=== PATIENT | female | born 1965 | race Caucasian/White ===

== ENCOUNTER → 2018-11-13 | Day surgery (SDC) | payer OTHER ==
[~2018-11-13] MED LIST: ASPIRIN EC 325 MG TAB PO ONE; BACITRACIN IRRIGATION/NS 50,000 UNITS/1,000 ML BTL IRR ONE; DIAZEPAM 5 MG TAB ONE; DIAZEPAM 5 MG TAB PO ONE; FAMOTIDINE 20 MG TAB ONE; IOPAMIDOL (ISOVUE-370) 150 ML BTL IV ONE; LIDOCAINE 1% 300 MG/30 ML SDV ONE; MIDAZOLAM 2 MG/2 ML VIAL ONE; NS 1,000 ML IV ONE; ceFAZolin 2 GM/DEXTROSE 100 ML IV ONE; diphenhydrAMINE 25 MG CAP PO ONE; fentaNYL 100 MCG/2 ML INJ ONE
[2018-11-13 11:40] LABS: PLATELET COUNT 354 10^3/uL (150-400)
[2018-11-13 11:55] LABS: INR 0.97 (0.83-1.16); PROTIME(PATIENT) 12.5 SEC (12.0-15.0)
--- NOTE | 2018-11-13 12:38 | PDHPUP ---
History & Physical Update H&P update statement: This history and physical update is based on an assessment of the patient which was completed after admission or registration (within 24 hours), but prior to the surgery/procedure. H&P update: H&P reviewed & patient examined, no change in patient's condition since H&P completed
--- NOTE | 2018-11-13 12:39 | PDPROPOC ---
Sedation Plan of Care Sedation Plan of Care: vital signs stable, mental status noted, patient educated of risks, benefits, alternatives, patient can tolerate sedation ASA Classification: ASA 2 Planned drugs: fentanyl, midazolam Mallampati Score: Class 2 Mallampati Reference Image: Patient passed 3-3-2 rule?: Yes
--- NOTE | 2018-11-13 14:14 | CPIP ---
[f rep st] INVASIVE CARDIAC PROCEDURE DATE OF PROCEDURE: 11/13/2018 PROCEDURES: 1. Coronary angiography. 2. Left ventriculography. 3. Bypass graft angiography. INDICATION: 1. Known coronary artery disease status post previous bypass grafting surgery. 2. Status post previous percutaneous coronary intervention. 3. Chest pain concerning for angina. ACCESS: Patient was prepped and draped in sterile fashion. 1% lidocaine was used to anesthetize the right inguinal region. A 6-Norwegian introducer sheath was placed selectively into the right common fe moral artery via modified Seldinger technique. CORONARY ANGIOGRAPHY: A 6-Norwegian JL4 catheter was advanced to the left main coronary artery and imag es obtained. The left main coronary artery bifurcated into LAD and circumflex coronary arteries. Th e left main coronary artery appeared free of any significant disease. The left anterior descending c oronary artery was 100% occluded in the mid vessel, just after the takeoff of the first diagonal bran ch. The first diagonal branch had a proximal 75% to 80% stenosis present. The distal vessel was kyle ng filled by a READ graft. The circumflex coronary artery was a large vessel and was dominant. The circumflex coronary artery had mild luminal irregularities throughout. The posterior descending roel nary artery was diffusely diseased. It is a relatively small vessel, approximately 1-1.[address] A 6-Norwegian no-torque right catheter was advanced to the right coronary artery and images obtain ed. The right coronary artery is nondominant. The right coronary artery appeared free of any signif icant disease. BYPASS GRAFT ANGIOGRAPHY: A 6-Norwegian JR4 was used to engage the saphenous vein graft to diagonal art eddie. The saphenous vein graft to diagonal artery was previously stented in the proximal segment. Th e previously placed stent was widely patent with a 30% to 40%in-stent restenosis. The stenotic segme nt was still larger than the diagonal vessel, which it supplied. The 6-Norwegian JR4 was used to engage the left subclavian artery. The 6-Norwegian JR4 was then exchanged for a 6-Norwegian MANUEL catheter. The 6-F rench MANUEL catheter was used to engage the READ to LAD graft. The READ to LAD graft was widely patent with no evidence of significant stenosis. LEFT VENTRICULOGRAPHY: A 6-Norwegian pigtail catheter was advanced in the left ventricle and images obt ained. The left ventricle was normal in size, had normal systolic function. Estimated ejection frac tion was 70%. COMPLICATIONS: None. CONCLUSIONS: 1. Single-vessel coronary artery disease involving the left anterior descending coronary artery and its branches. 2. Patent READ to LAD graft. 3. Patent saphenous vein graft to diagonal artery. 4. No significant flow-limiting disease in the nondominant right coronary artery, as well as circumf katlyn coronary artery. /[id number]/MODL
--- NOTE | 2018-11-13 18:35 | CPEKG ---
Test Reason : OPEN Blood Pressure : / mmHG Vent. Rate : 069 BPM Atrial Rate : 070 BPM P-R Int : 147 ms QRS Dur : 094 ms QT Int : 539 ms P-R-T Axes : 048 -17 -11 degrees QTc Int : 578 ms Sinus rhythm Borderline left axis deviation Nonspecific T abnormalities, anterior leads Prolonged QT interval Confirmed by Shila Clifton ([id number]) on 11/13/2018 6:35:05 PM Referred By: Leonel Greene Confirmed By:Shila Clifton
== END | disposition home or self-care (01) ==
LOC: FCATH 11:01
PROVIDERS: ATTEND Internal Medicine Cardiovascular Disease
PROC: B2181ZZ Fluoroscopy of Left Internal Mammary Bypass Graft using Low Osmolar Contrast (ICD-10-PCS; principal; 2018-11-13)
PROC: B2111ZZ Fluoroscopy of Multiple Coronary Arteries using Low Osmolar Contrast (ICD-10-PCS; principal; 2018-11-13)
PROC: B2121ZZ Fluoroscopy of Single Coronary Artery Bypass Graft using Low Osmolar Contrast (ICD-10-PCS; principal; 2018-11-13)
PROC: B2151ZZ Fluoroscopy of Left Heart using Low Osmolar Contrast (ICD-10-PCS; principal; 2018-11-13)
PROC: 4A023N7 Measurement of Cardiac Sampling and Pressure, Left Heart, Percutaneous Approach (ICD-10-PCS; principal; 2018-11-13)
DX: R07.9 Chest pain, unspecified (principal); I25.10 Atherosclerotic heart disease of native coronary artery without angina pectoris; I25.2 Old myocardial infarction; Z95.1 Presence of aortocoronary bypass graft; Z95.5 Presence of coronary angioplasty implant and graft
CPT/HCPCS: C1760; J0690; J1644; J2250; J3010; Q9967